=== PATIENT | male | born 1985 | race African-American/Black ===

== ENCOUNTER 2018-08-28 17:56 | Emergency (ER) | payer OTHER ==
[~2018-08-28] VITALS: Ht 172.7 cm; Wt 80.0 kg
[2018-08-28 22:54] LABS: BASOPHILS % 0.9 % (0.0-2.0); EOSINOPHILS % 2.9 % (0.0-5.0); HEMOGLOBIN. 14.8 g/dL (14.0-18.0); MEAN CORPUSCULAR HEMOGLOBIN 26.3 pg (28.0-32.0); MEAN CORPUSCULAR VOLUME 81.7 fL (80.0-94.0); MEAN PLATELET VOLUME 9.7 fl (7.4-10.4); MONOCYTES % 7.3 % (2.0-8.0); NEUTROPHILS % 47.9 % (40.0-76.0); PLATELET 135 x1000/uL (130-400); RED BLOOD CELL COUNT 5.63 mill/uL (4.7-6.1); RED CELL DISTRIBUTION WIDTH 14.4 % (11.6-14.6)
[2018-08-28 23:00] LABS: CHLORIDE 105 mEq/L (98-107)
[2018-08-29 00:18] VITALS: BP 120/74
== END 2018-08-29 00:20 | disposition home or self-care (01) ==
LOC: ER 17:56
DX: K64.4 Residual hemorrhoidal skin tags (principal); F12.10 Cannabis abuse, uncomplicated; J45.909 Unspecified asthma, uncomplicated
CPT/HCPCS: 36415; 80048; 99283